=== PATIENT | male | born 1935 | race Caucasian/White ===

== ENCOUNTER 2017-05-16 08:52 | Inpatient (IN) | payer SELFPAY ==
[~2017-05-16] VITALS: Ht 154.9 cm; Wt 58.5 kg
[2017-05-16 09:06] VITALS: BP 149/60
--- NOTE | 2017-05-16 11:35 | NUR ---
PATIENT AMBULATED TO BED #12 WITH HELP
--- NOTE | 2017-05-16 12:36 | NUR ---
ASSUMED PATIENT CARE, CONCUR WITH TRIAGE ASSESSMENT. BEDDED IN ER 12, SON AT BEDSIDE. ORIENTED TO PLAN OF CARE.
[2017-05-16] MEDS ORDERED: NACL 0.9% 500 ML IV ONE (13:30)
[2017-05-16 13:56] LABS: BASOPHILS # (AUTO) 0.1 K/uL (0.00-0.22); EOSINOPHILS # (AUTO) 0.1 K/uL (0-0.4); MEAN CORPUSCULAR HEMOGLOBIN 29 pg (27-31); NEUTROPHILS # (AUTO) 1.1 K/uL (1.8-7.7); RED BLOOD CELL COUNT(AUTO) 4.09 MIL/uL (4.20-6.10)
[2017-05-16 14:18] LABS: ALBUMIN 2.4 g/dL (3.4-5.0); ANION GAP 10.2 (8-16); ASPARTATE AMINOTRANSFERASE 29 U/L (15-37); CARBON DIOXIDE 25.8 mmol/L (21-32); CHLORIDE 110 mmol/L (98-107); CREATININE 1.3 mg/dL (0.7-1.3); GLUCOSE 129 mg/dL (74-106); HEMATOCRIT 35.4 % (36-52); HEMOGLOBIN 11.6 g/dL (12.0-18.0); LYMPHOCYTES # (AUTO) 0.5 K/uL (2.0-11.5); MEAN CORPUSCULAR HGB CONC 33 g/dL (33-37); MEAN CORPUSCULAR VOLUME 87 fL (80-94); MONOCYTES # (AUTO) 0.3 K/uL (0.8-1.0); PLATELET COUNT (AUTO) 67 K/uL (140-450); RED CELL DISTRIBUTION WIDTH 15.9 % (11.6-13.7); SODIUM SERUM 142 mmol/L (136-145); TOTAL BILIRUBIN 1.3 mg/dL (0.0-1.0); UREA NITROGEN, BLOOD 20 mg/dL (7-18); WHITE BLOOD COUNT (AUTO) 2.1 K/uL (4.8-10.8)
--- NOTE | 2017-05-16 15:28 | NUR ---
DIAGNOSTIC TESTING INITIATED, AWAITING RESULTS. IVF HYDRATION ONGOING, MAINTAINED ON CARDIAC MONITORING. SAFETY PRECAUTIONS ENFORCED.
[2017-05-16 15:31] LABS: APPEARANCE,URINE CLEAR (CLEAR); BILIRUBIN,URINE NEGATIVE (NEGATIVE); BLOOD, URINE NEGATIVE (NEGATIVE); COLOR,URINE YELLOW (YELLOW); LEUKOCYTE ESTERASE ,URINE NEGATIVE (NEGATIVE); NITRITE, URINE NEGATIVE (NEGATIVE); PH,URINE 7.5 (5.0-9.0); UGLUCOSE NEGATIVE (NEGATIVE)
[2017-05-16 15:42] LABS: BARBITURATE, URINE NEG. ng/ml (NEG <=200); BENZODIAZEPINE, URINE NEG. ng/mL (NEG <=200); CANNABINOID, URINE NEG. ng/mL (NEG <=50); COCAINE, URINE NEG. ng/mL (NEG <=300); OPIATE, URINE NEG. ng/mL (NEG <=2000); PHENCYCLIDINE SCREEN,URINE NEG. ng/mL (NEG <=25)
[2017-05-16] MEDS: NACL 0.9% 1,000 ML IV SCH ×2 (16:42→20:30)
[2017-05-16] MEDS ORDERED: HYDROcodone/APAP 7.5/325 MG 1 TAB PO PRN (16:45)
[2017-05-16] MEDS ORDERED: ACETAMINOPHEN 325 MG TAB PO PRN (16:45)
[2017-05-16] MEDS ORDERED: ONDANSETRON 4 MG/2 ML VIAL IVP PRN (16:45)
[2017-05-16] MEDS ORDERED: LACTULOSE 20 GM/30 ML UDC PO ONE (17:10)
[2017-05-16 17:25] LABS: CHOL/HDL RATIO 2.1 (1-4.5); FREE T4 (FREE THYROXINE) 1.02 ng/dL (0.76-1.46); MAGNESIUM 2.3 mg/dL (1.8-2.4); PHOSPHORUS 3.4 mg/dL (2.5-4.9); THYROID STIMULATING HORMONE 1.63 uIU/mL (0.34-3.74)
--- NOTE | 2017-05-16 18:01 | NUR ---
DISPO AND MEDICAL DECISION MAKING, INPATIENT ADMISSION FOR FURTHER MANAGEMENT. PATIENT CARE REPORT GIVEN TO KATE, CONTINUITY OF CARE ENDORSED.
--- NOTE | 2017-05-16 18:40 | NUR ---
TRANSPORTED TO FLOOR VIA ACLS PROTOCOL, FAMILY WITH PATIENT. STABLE ON TRANSFER, VSWNL.
[2017-05-16 19:40] VITALS: BP 144/67
--- NOTE | 2017-05-16 19:40 | NUR ---
RECEIVED REPORT ON PT FROM AM NURSE. PT ADMITTED FROM ER BY [facility] . ACCOMPANIED BY SON AND DAUGHTER IN LAW. ON TELE MONITOR -SB. CAME DUE TO GENERAL WEAKNESS, DIZZINESS AND WITH MILD CONFUSION AND N/V. AWAKE,ALERT AND ORIENTED X4 AT THIS TIME, PAL[place]AN SPEAKING. WITH IV ACCESS ON THE RT AC #22. CLEAR AND PATENT. SKIN INTACT INITIAL SKIN ASSESSMENT DONE. ORIENTED TO HOSPITAL ROUTINES, VISITING HOURS , USE OF CALL LIGHT AND BED ALARM ON DUE TO PERIODS OF CONFUSION AND WEAKNESS FOR SAFETY. PT PLACED IN COMFORTABLE POSITION WILL FOLLOW UP ADMIT ORDERS.
[2017-05-16] MEDS ORDERED: MECLIZINE 25 MG TAB PO PRN (20:10)
[2017-05-16] MEDS ORDERED: FURO-570 PO (20:10)
[2017-05-16] MEDS ORDERED: SPIR50TA PO (20:10)
[2017-05-16] MEDS ORDERED: VITA1TAB44 PO (20:10)
[2017-05-16] MEDS ORDERED: PYRI50TA12 PO (20:10)
[2017-05-16] MEDS ORDERED: PANT40EC PO (20:10)
[2017-05-16] MEDS ORDERED: MECL-272 PO (20:10)
[2017-05-16] MEDS ORDERED: ALBUTEROL SULFATE/IPRATROPIU 3 ML SOL IH PRN (20:40)
[2017-05-16] MEDS: DOCUSATE SODIUM 100 MG GELCAP PO SCH (21:27)
--- NOTE | 2017-05-16 22:00 | NUR ---
US ABDOMEN DONE AT BEDSIDE. WILL FOLLOW UP RESULT.
[2017-05-16] MEDS: LACTULOSE 20 GM/30 ML UDC PO SCH (22:33)
--- NOTE | 2017-05-16 22:45 | NUR ---
ASSISTED BY SON TO GET UP TO THE BATHROOM. HAD LARGE BM.
[2017-05-17 00:32] VITALS: BP 152/66
--- NOTE | 2017-05-17 01:30 | NUR ---
SCD MACHINE APPLIED TO BILATERAL LOWER LEGS . PT MADE AWARE OF THE BENEFITS .
[2017-05-17 04:10] VITALS: BP 150/74
[2017-05-17] MEDS: ALBUTEROL SULFATE/IPRATROPIU 3 ML SOL IH SCH ×3 (06:40→19:17)
--- NOTE | 2017-05-17 06:56 | NUR ---
PATIENT HAS BEEN SCREENED AND CATEGORIZED HIGH NUTRITION RISK. PATIENT WILL BE SEEN WITHIN 1-2 DAYS OF ADMISSION. 05/17/17-05/18/17 BRENDA PATTERSON MS, RDN
--- NOTE | 2017-05-17 07:15 | NUR ---
ENDORSED PT IN STABLE CONDITION TO AM NURSE FOR CONTINUITY OF CARE.
--- NOTE | 2017-05-17 07:20 | NUR ---
RECEIVED PT REPORT FROM ER NURSE. PT IS AAO AND SHOWS NO S/S OF ACUTE DISTRESS ON RA. PT DENIES PAIN, SKIN INTACT, ON TELE MONITOR. IV NOTED ON THE R FA WITH IVF'S INFUSING WELL WITH NO SIGNS OF INFILTRATION. DISCUSSED POC WITH PT AND SHE VERBALIZED UNDERSTANDING. THE BED IS IN LOW POSITION WITH CALL LIGHT WITHIN REACH. WILL CONTINUE TO MONITOR.
[2017-05-17 08:00] VITALS: BP 141/68
[2017-05-17 08:08] LABS: HEMATOCRIT 33.1 % (36-52); HEMOGLOBIN 10.8 g/dL (12.0-18.0); MEAN CORPUSCULAR HEMOGLOBIN 29 pg (27-31); MEAN CORPUSCULAR HGB CONC 33 g/dL (33-37); MEAN CORPUSCULAR VOLUME 88 fL (80-94); PLATELET COUNT (AUTO) 59 K/uL (140-450); RED BLOOD CELL COUNT(AUTO) 3.78 MIL/uL (4.20-6.10); RED CELL DISTRIBUTION WIDTH 15.7 % (11.6-13.7)
[2017-05-17 08:15] LABS: WHITE BLOOD COUNT (AUTO) 1.8 K/uL (4.8-10.8)
[2017-05-17 08:24] LABS: ANION GAP 10.3 (8-16); CARBON DIOXIDE 22.6 mmol/L (21-32); CHLORIDE 115 mmol/L (98-107); CREATININE 1.2 mg/dL (0.7-1.3); GLUCOSE 104 mg/dL (74-106); POTASSIUM 3.9 mmol/L (3.5-5.1); SODIUM SERUM 144 mmol/L (136-145); UREA NITROGEN, BLOOD 19 mg/dL (7-18)
[2017-05-17 08:42] LABS: PHOSPHORUS 3.2 mg/dL (2.5-4.9)
[2017-05-17] MEDS: PANTOPRAZOLE 40 MG TABEC PO SCH (09:06)
[2017-05-17] MEDS: DOCUSATE SODIUM 100 MG GELCAP PO SCH ×2 (09:06→20:28)
[2017-05-17] MEDS: LACTULOSE 20 GM/30 ML UDC PO SCH (09:06)
[2017-05-17] MEDS: PYRIDOXINE 50 MG TAB PO SCH (09:07)
[2017-05-17] MEDS: VIT-B COMP/VIT-C/FOLIC ACID 1 TAB PO SCH (09:07)
--- NOTE | 2017-05-17 09:10 | NUR ---
ADMINISTERED SCHEDULED MEDICATIONS. PT SWALLOWED WITH NO DIFFICULTY. PT'S NEEDS MET AT THIS TIME. WILL CONTINUE TO MONITOR.
[2017-05-17 09:11] LABS: BASOPHILS % (MANUAL) 0 % (0-2); EOSINOPHILS % (MANUAL) 6 % (0-4); LYMPHOCYTES % (MANUAL) 16 % (20-46); MONOCYTES % (MANUAL) 14 % (5-12)
[2017-05-17 12:00] VITALS: BP 127/60
--- NOTE | 2017-05-17 12:15 | NUR ---
PT SHOWS NO S/S OF ACUTE DISTRESS ON ROOM AIR. PT FAMILY AT BEDSIDE. WILL CONTINUE TO MONITOR.
--- NOTE | 2017-05-17 13:59 | NUR ---
05/17/17 RD INITIAL ASSESSMENT COMPLETED PLEASE REFER TO NUTRITION ASSESSMENT UNDER CARE ACTIVITY FOR ESTIMATED NUTRITIONAL NEEDS. RD RECOMMENDATIONS: 1. CONTINUES ON REGULAR DIET TOLERATED. 2. CONSULT RDN PRN. 3. RD WILL F/U 3-5 DAYS; MODERATE RISK. BRENDA PATTERSON MS, RDN
--- NOTE | 2017-05-17 14:14 | NUR ---
PT LEFT IN STABLE CONDITION TO PROCEDURE.
[2017-05-17] MEDS: NACL 0.9% 1,000 ML IV SCH (15:02)
--- NOTE | 2017-05-17 15:20 | NUR ---
PT IS BACK ON UNIT. IV IS INFILTRATED. WILL ATTEMPT NEW IV SITE. PT IS AAOX4 AND SHOWS NO S/S OF ACUTE DISTRESS ON ROOM AIR.
[2017-05-17 16:00] VITALS: BP 123/52
--- NOTE | 2017-05-17 16:00 | NUR ---
NEW IV SITE ON THE L FA 22 G WITH IVF'S INFUSING WELL.
--- NOTE | 2017-05-17 17:04 | NUR ---
PT HAS FAMILY AT BEDSIDE. PT SHOWS NO S/S OF ACUTE DISTRESS ON ROOM AIR. PT DENIES PAIN.
--- NOTE | 2017-05-17 18:15 | NUR ---
PT IS SITTING UP AND EATING DINNER AND TOLERATING REGULAR DIET. ALL OF PT'S NEEDS ARE MET AT THIS TIME.
--- NOTE | 2017-05-17 19:10 | NUR ---
PT REPORT WAS GIVEN TO NIGHT NURSE AT BEDSIDE. PT ENDORSED IN STABLE CONDITION.
--- NOTE | 2017-05-17 19:15 | NUR ---
RECEIVED PT IN STABLE CONDITION FROM MAN NURSE. AWAKE, ALERT AND ORIENTED X4. WITH FAMILY MEMBERS AT BEDSIDE. ON TELE MONITOR . NO S/S OF ANY DISCOMFORT NOR DISTRESS NOTED. HAS IVF INFUSING WELL ON THE LT FA#22. CLEAR AND PATENT. PLAN OF CARE DISCUSSED WITH PT/FAMILY AND VERBALIZED UNDERSTANDING. WITH BLE SCD ON. BED ON LOW POSITION, BED ALARM ON. CALL LIGHT PLACED WITHIN EASY REACH. WILL CONTINUE TO MONITOR.
[2017-05-17] MEDS ORDERED: LACTULOSE 20 GM/30 ML UDC PO SCH (19:55)
[2017-05-17 20:00] VITALS: BP 134/67
--- NOTE | 2017-05-17 21:00 | NUR ---
DR. LA CAME AND TALKED TO PT AND SON .
--- NOTE | 2017-05-17 22:30 | NUR ---
MADE ROUNDS . ASLEEP. NO S/S OF ANY DISTRESS NOTED. WILL CONTINUE TO MONITOR.
[2017-05-18 00:30] VITALS: BP 136/66
[2017-05-18] MEDS: NACL 0.9% 1,000 ML IV SCH ×3 (00:40→10:40)
--- NOTE | 2017-05-18 02:05 | NUR ---
SLEEPING AT THIS TIME. NO S/S OF ANY DISCOMFORT NOR PAIN NOTED.
[2017-05-18 03:43] VITALS: BP 140/65
--- NOTE | 2017-05-18 04:00 | NUR ---
PT VITAL SIGNS STABLE . NO C/O ANY PAIN NOTED.
--- NOTE | 2017-05-18 06:46 | NUR ---
PT SLEEPING NO SIGNS OF DISTRESS NOTED AT THIS TIME, NO HHN GIVEN
[2017-05-18] MEDS: ALBUTEROL SULFATE/IPRATROPIU 3 ML SOL IH SCH (06:49)
[2017-05-18 06:50] LABS: BASOPHILS # (AUTO) 0.1 K/uL (0.00-0.22); BASOPHILS % (AUTO) 3.1 % (0.0-2.0); EOSINOPHILS # (AUTO) 0.1 K/uL (0-0.4); EOSINOPHILS % (AUTO) 4.3 % (0.0-4.0); HEMATOCRIT 29.9 % (36-52); HEMOGLOBIN 9.8 g/dL (12.0-18.0); LYMPHOCYTES # (AUTO) 0.3 K/uL (2.0-11.5); LYMPHOCYTES % (AUTO) 12.4 % (20.5-51.1); MEAN CORPUSCULAR HEMOGLOBIN 29 pg (27-31); MEAN CORPUSCULAR HGB CONC 33 g/dL (33-37); MEAN CORPUSCULAR VOLUME 88 fL (80-94); MONOCYTES # (AUTO) 0.5 K/uL (0.8-1.0); MONOCYTES % (AUTO) 19.1 % (1.7-9.3); NEUTROPHILS # (AUTO) 1.7 K/uL (1.8-7.7); NEUTROPHILS % (AUTO) 61.1 % (42.2-75.2); PLATELET COUNT (AUTO) 57 K/uL (140-450); RED BLOOD CELL COUNT(AUTO) 3.41 MIL/uL (4.20-6.10); RED CELL DISTRIBUTION WIDTH 15.7 % (11.6-13.7)
--- NOTE | 2017-05-18 07:12 | NUR ---
ENDORSED PT IN STABLE CONDITION TO AM NURSE.
--- NOTE | 2017-05-18 07:15 | NUR ---
RECEIVED PT REPORT FROM NIGHT NURSE. PT IS AAOX3 AND SHOWS NO S/S OF ACUTE DISTRESS ON RA. PT DENIES CHEST PAIN AND SOB, SKIN INTACT, ON TELE MONITOR. IV NOTED ON THE LT FA WITH IVF'S INFUSING WELL WITH NO SIGNS OF INFILTRATION. DISCUSSED POC WITH PT AND HE VERBALIZED UNDERSTANDING. PT FAMILY AT BEDSIDE. THE BED IS IN LOW POSITION WITH CALL LIGHT WITHIN REACH. WILL CONTINUE TO MONITOR.
[2017-05-18 07:21] LABS: ANION GAP 10.3 (8-16); CARBON DIOXIDE 21.4 mmol/L (21-32); CHLORIDE 112 mmol/L (98-107); CREATININE 1.1 mg/dL (0.7-1.3); GLUCOSE 101 mg/dL (74-106); POTASSIUM 3.7 mmol/L (3.5-5.1); SODIUM SERUM 140 mmol/L (136-145); UREA NITROGEN, BLOOD 18 mg/dL (7-18)
[2017-05-18 07:28] LABS: WHITE BLOOD COUNT (AUTO) 2.7 K/uL (4.8-10.8)
[2017-05-18 08:00] VITALS: BP 130/68
[2017-05-18] MEDS ORDERED: SPIRONOLACTONE 50 MG TAB PO SCH (09:00)
[2017-05-18] MEDS ORDERED: FUROSEMIDE 40 MG TAB PO SCH (09:00)
[2017-05-18 09:19] LABS: MAGNESIUM 1.9 mg/dL (1.8-2.4); PHOSPHORUS 2.7 mg/dL (2.5-4.9)
[2017-05-18] MEDS: LACTULOSE 20 GM/30 ML UDC PO SCH ×2 (09:48→12:15)
[2017-05-18] MEDS: DOCUSATE SODIUM 100 MG GELCAP PO SCH (09:48)
[2017-05-18] MEDS: VIT-B COMP/VIT-C/FOLIC ACID 1 TAB PO SCH (09:48)
[2017-05-18] MEDS: PYRIDOXINE 50 MG TAB PO SCH (09:49)
[2017-05-18] MEDS: PANTOPRAZOLE 40 MG TABEC PO SCH (09:49)
--- NOTE | 2017-05-18 09:50 | NUR ---
ADMINISTERED SCHEDULED MEDICATION. PT SWALLOWED MEDICATIONS WITHOUT DIFFICULTY, PT C/O HEADACHE AND WAS GIVEN TYLENOL 650 MG PO. WILL REASSESS IN ONE HR. PT'S NEEDS MET AT THIS TIME WILL CONTINUE TO MONITOR. FAMILY AT BEDSIDE.
[2017-05-18 12:00] VITALS: BP 128/60
--- NOTE | 2017-05-18 12:31 | NUR ---
VENT CHECK, SXN PT MODERATE AMT OF THICK YELLOW SECRETIONS, I\L TX GIVEN WITH DUONEB 3ML WITH NO ADVERSE REACTION POST TX B\S ARE RHONCHI AND PT IS SLEEPING WITH NO SIGNS OF DISTRESS NOTED AT THIS TIME
--- NOTE | 2017-05-18 12:40 | NUR ---
ADMINISTERED SCHEDULED MEDICATIONS. PT SWALLOWED WITH NO DIFFICULTY. PT DENIES PAIN AND SOB. PT FAMILY AT BEDSIDE. PT ASKED TO USE THE RESTROOM AND WAS ASSISTED WITH AMB TO RESTROOM. PT HAS STEADY GAIT. PT IS NOW IN BED AND SHOWS NO S/S OF ACUTE DISTRESS ON ROOM AIR.
--- NOTE | 2017-05-18 13:20 | NUR ---
PT IS SITTING UP IN BED EATING LUNCH AND TOLERATING FOOD WELL. PT DENIES PAIN, N/V AND SHOWS NO S/S OF ACUTE DISTRESS ON ROOM AIR. PT FAMILY AT BEDSIDE.
--- NOTE | 2017-05-18 13:50 | NUR ---
PT HAS BEEN DISCHARGED. ALL PAPERWORK SIGNED, DISCHARGE INSTRUCTIONS GIVEN, ALL QUESTIONS ANSWERED. ALL BELONGINGS AND PAPERWORK IN PT'S POSSESSION. IV DISCONTINUED WITH CANNULA INTACT. WRISTBANDS AND TELE BOX REMOVED. PT LEFT UNIT IN WHEEL CHAIR WITH FAMILY PRESENT AT SIDE. PT DENIES SOB AND PAIN. PT LEFT IN STABLE CONDITION. Addendum: 05/18/17 at 1603 by Janette Zaman RN ACTUAL TIME OF DC WAS 1550
--- NOTE | 2017-05-18 14:15 | NUR ---
PT FAMILY IS AT BEDSIDE AND STATED THEY SPOKE WITH A DR AND STATED, "QUERCLARENCEOS ALEJANDROARLO AL DE [place], MEJOR VANDANA LLA SE SIENTE YASEMIN." PT FAMILY REQUESTS TO HAVE PT BE TREATED IN HIS [place] WHERE HIS DR IS MORE FAMILIAR WITH HIS MEDICAL HX. WILL NOTIFY
[2017-05-18] MEDS ORDERED: LACT10SO11 PO (14:46)
--- NOTE | 2017-05-18 15:50 | NUR ---
PT HAS BEEN DISCHARGED. ALL PAPERWORK SIGNED, DISCHARGE INSTRUCTIONS GIVEN, ALL QUESTIONS ANSWERED. ALL BELONGINGS AND PAPERWORK IN PT'S POSSESSION. IV DISCONTINUED WITH CANNULA INTACT. WRISTBANDS AND TELE BOX REMOVED. PT LEFT UNIT IN WHEEL CHAIR WITH FAMILY PRESENT AT SIDE. PT DENIES SOB AND PAIN. PT LEFT IN STABLE CONDITION.
[2017-05-19] MEDS ORDERED: ALBUTEROL SULFATE/IPRATROPIU 3 ML SOL IH SCH (07:00)
== END 2017-05-18 15:50 | disposition home or self-care (01) | DRG 441 ==
LOC: MED 08:52 → MTU 16:49
PROVIDERS: ADMIT Family Medicine; ATTEND Family Medicine
DX: K72.90 Hepatic failure, unspecified without coma (principal); N17.0 Acute kidney failure with tubular necrosis; E43 Unspecified severe protein-calorie malnutrition; J44.9 Chronic obstructive pulmonary disease, unspecified; K76.6 Portal hypertension; K70.30 Alcoholic cirrhosis of liver without ascites; K21.9 Gastro-esophageal reflux disease without esophagitis; K59.00 Constipation, unspecified; Z87.11 Personal history of peptic ulcer disease; Z68.24 Body mass index [BMI] 24.0-24.9, adult; D70.9 Neutropenia, unspecified; K25.9 Gastric ulcer, unspecified as acute or chronic, without hemorrhage or perforation
CPT/HCPCS: 36415; 70450; 71010; 74170; 76700; 80048; 80053; 80305; 81003; 82140; 82150; 82550; 83036; 83605; 83690; 83735; 83880; 84100; 84439; 84443; 84484; 85025; 85610; 85730; 87081; 87086; 93005; 94640; 96360; 99285; G0482; J7030; J7620; Q0092; Q9967